=== PATIENT | male | born 1960 | race African-American/Black ===

== ENCOUNTER 2017-09-04 07:30 | Emergency (ER) | payer OTHER ==
[~2017-09-04] VITALS: Ht 190.5 cm; Wt 99.8 kg
--- NOTE | 2017-09-04 07:52 | PHYS DOC ---
Past Medical History Past Medical History: High Cholesterol, Hypertension Past Surgical History: Appendectomy, Other Additional Past Surgical Histo: "I THINK APPENDIX WAS REMOVED" Additional Information: 10-12 CIGARETTES A DAY Alcohol Use: Occasionally Additional Information: WEEKLY Drug Use: None Adult General Chief Complaint Chief Complaint: HYPERTENSION HPI HPI Patient is a 57 year old -[place]ian male with history of hypertension who presents today complaining of high blood pressure. Patient states he was at work today and his blood pressure was taken which was in the low 200s/100s. Patient denies any symptoms. He states he takes hydrochlorothiazide which she took a soon as he was told his blood pressure was high. Patient denies any other symptoms. Review of Systems Review of Systems Constitutional: Denies fever or chills [] Eyes: Denies change in visual acuity, redness, or eye pain [] HENT: Denies nasal congestion or sore throat [] Respiratory: Denies cough or shortness of breath [] Cardiovascular: High blood pressure GI: Denies abdominal pain, nausea, vomiting, bloody stools or diarrhea [] : Denies dysuria or hematuria [] Musculoskeletal: Denies back pain or joint pain [] Integument: Denies rash or skin lesions [] Neurologic: Denies headache, focal weakness or sensory changes [] All other systems were reviewed and found to be within normal limits, except as documented in this note. Current Medications Current Medications Current Medications Medications (Trade) Dose Ordered Sig/Al Start Time Stop Time Status Last Admin Dose Admin Azithromycin (Zithromax) 1,000 mg 1X ONCE 09/04/17 08:15 09/04/17 08:18 DC 09/04/17 08:48 1,000 MG Ceftriaxone Sodium 50 ml @ 100 mls/hr 1X ONCE 09/04/17 08:15 09/04/17 08:44 DC 09/04/17 08:50 100 MLS/HR Clonidine HCl (Catapres) 0.2 mg 1X ONCE 09/04/17 08:00 09/04/17 08:01 DC 09/04/17 07:57 0.2 MG Metronidazole (Flagyl) 2,000 mg 1X ONCE 09/04/17 08:15 09/04/17 08:18 DC 09/04/17 08:49 2,000 MG Allergies Allergies Allergies Coded Allergies Type Severity Reaction Last Updated Verified Penicillins Allergy Severe "SOMETHING HAPPENS" 09/04/17 Yes Physical Exam Physical Exam Constitutional: Well developed, well nourished, no acute distress, non-toxic appearance. [] HENT: Normocephalic, atraumatic, bilateral external ears normal, oropharynx moist, no oral exudates, nose normal. [] Eyes: PERRLA, EOMI, conjunctiva normal, no discharge. [] Neck: Normal range of motion, no tenderness, supple, no stridor. [] Cardiovascular:Heart rate regular rhythm, no murmur [] Lungs & Thorax: Bilateral breath sounds clear to auscultation [] Abdomen: Bowel sounds normal, soft, no tenderness, no masses, no pulsatile masses. [] Skin: Warm, dry, no erythema, no rash. [] Back: No tenderness, no CVA tenderness. [] Extremities: No tenderness, no cyanosis, no clubbing, ROM intact, no edema. [] Neurologic: Alert and oriented X 3, normal motor function, normal sensory function, no focal deficits noted. Cranial nerves II through XII intact Psychologic: Affect normal, judgement normal, mood normal. [] Current Patient Data Vital Signs Vital Signs Date Time Temp Pulse Resp B/P (MAP) Pulse Ox O2 Delivery O2 Flow Rate FiO2 09/04/17 09:08 54 11 100 09/04/17 07:57 241/114 09/04/17 07:30 98.7 Room Air 98.7 Lab Values Laboratory Tests Test 09/04/17 07:45 09/04/17 07:51 White Blood Count 6.9 x10^3/uL (4.0-11.0) Red Blood Count 5.19 x10^6/uL (4.30-5.70) Hemoglobin 14.8 g/dL (13.0-17.5) Hematocrit 44.2 % (39.0-53.0) Mean Corpuscular Volume 85 fL (79-100) Mean Corpuscular Hemoglobin 28 pg (25-35) Mean Corpuscular Hemoglobin Concent 33 g/dL (31-37) Red Cell Distribution Width 13.6 % (11.5-14.5) Platelet Count 187 x10^3/uL (140-400) Neutrophils (%) (Auto) 60 % (31-73) Lymphocytes (%) (Auto) 28 % (24-48) Monocytes (%) (Auto) 10 % (0-9) H Eosinophils (%) (Auto) 1 % (0-3) Basophils (%) (Auto) 1 % (0-3) Neutrophils # (Auto) 4.2 x10^3uL (1.8-7.7) Lymphocytes # (Auto) 1.9 x10^3/uL (1.0-4.8) Monocytes # (Auto) 0.7 x10^3/uL (0.0-1.1) Eosinophils # (Auto) 0.1 x10^3/uL (0.0-0.7) Basophils # (Auto) 0.1 x10^3/uL (0.0-0.2) Sodium Level 140 mmol/L (136-145) Potassium Level 3.9 mmol/L (3.5-5.1) Chloride Level 105 mmol/L (98-107) Carbon Dioxide Level 25 mmol/L (21-32) Anion Gap 10 (6-14) Blood Urea Nitrogen 26 mg/dL (8-26) Creatinine 1.2 mg/dL (0.7-1.3) Estimated GFR (Cockcroft-Gault) 76.1 Glucose Level 150 mg/dL (70-99) H Calcium Level 8.2 mg/dL (8.5-10.1) L Creatine Kinase 252 U/L (39-308) Creatine Kinase MB (Mass) 2.7 ng/mL (0.0-3.6) Creatine Kinase MB Relative Index 1.1 % (0-4) Troponin I Quantitative 0.029 ng/mL (0.000-0.055) PR-Bry-A-Type Natriuretic Peptide 260 pg/mL (0-124) H Urine Collection Type Unknown Urine Color Yellow Urine Clarity Clear Urine pH 6.0 Urine Specific [place] 1.020 Urine Protein Negative mg/dL (NEG-TRACE) Urine Glucose (UA) Negative mg/dL (NEG) Urine Ketones (Stick) Negative mg/dL (NEG) Urine Blood Negative (NEG) Urine Nitrite Negative (NEG) Urine Bilirubin Negative (NEG) Urine Urobilinogen Dipstick 0.2 mg/dL (0.2 mg/dL) Urine Leukocyte Esterase Small (NEG) Urine RBC Occ /HPF (0-2) Urine WBC 5-10 /HPF (0-4) Urine Squamous Epithelial Cells Few /LPF Urine Bacteria Few /HPF (0-FEW) Urine Mucus Slight /LPF Urine Trichomonas Present Laboratory Tests 09/04/17 07:45 Laboratory Tests 09/04/17 07:45 EKG EKG 07:[address] Webster sinus rhythm, HR 63, QRS Interval 80, no STEMI Radiology/Procedures Radiology/Procedures [] Course & Med Decision Making Course & Med Decision Making Pertinent Labs and Imaging studies reviewed. (See chart for details) This is a 57-year-old male with history of hypertension presented to the ED today complaining of high blood pressure. He takes hydrochlorothiazide which she took this morning. BP in the ED was 241/114. Patient is asymptomatic with this blood pressure. Patient's labs are negative except for BNP 160. Patient's blood pressure has came down to 183/104. He is requesting to be discharged. He was discharged with Amlodipine to take with his daily HCTZ. Patient is also concerned about STDs and would like to be tested and treated. Given Rocephin Flagyl and azithromycin in the ED. Educated on safe sex practices and the need to use protection. Patient is positive for Trichomonas. Patient provided STD education as well as follow-up information. I highly emphasize the importance of following up with the primary care doctor. Dragon Disclaimer Dragon Disclaimer This electronic medical record was generated, in whole or in part, using a voice recognition dictation system. Departure Departure Impression: Primary Impression: Accelerated hypertension Additional Impression: Trichomonas infection Disposition: HOME, SELF-CARE Condition: STABLE Referrals: NO PCP (PCP) Patient Instructions: Hypertension, Trichomoniasis Additional Instructions: You were seen for high blood pressure in the emergency room. We put you on amlodipine. Please continue taking hydrochlorothiazide. Please follow up with your primary care doctor on Tuesday. Return to the emergency room at any point you have concerning symptoms. You tested positive for trichomonas, this is a sexually transmitted disease, please do not have sex for seven days. Contact your partners let them you tested positive for trichomonas and ask them to seek treatment. Use protection at all times. Scripts Amlodipine Besylate (AMLODIPINE BESYLATE) 10 Mg Tablet 10 MG PO DAILY, #14 TAB Prov: ASHWIN CLAYTON APRN 09/04/17 Problem Qualifiers ASHWIN CLAYTON APRN Sep 04, 2017 07:52
[2017-09-04 07:57] LABS: BASO # 0.1 x10^3/uL (0.0-0.2); BASO % 1 % (0-3); EOS % 1 % (0-3); HEMATOCRIT 44.2 % (39.0-53.0); HEMOGLOBIN 14.8 g/dL (13.0-17.5); LYMPH # 1.9 x10^3/uL (1.0-4.8); LYMPH % 28 % (24-48); MEAN CORPUSCULAR HEMOGLOBIN 28 pg (25-35); MEAN CORPUSCULAR HGB CONC 33 g/dL (31-37); MEAN CORPUSCULAR VOLUME 85 fL (79-100); MONO % 10 % (0-9); NEUT % 60 % (31-73); PLATELET COUNT 187 x10^3/uL (140-400); RED BLOOD COUNT 5.19 x10^6/uL (4.30-5.70); RED CELL DISTRIBUTION WIDTH 13.6 % (11.5-14.5); WHITE BLOOD COUNT 6.9 x10^3/uL (4.0-11.0)
[2017-09-04] MEDS ORDERED: cloNIDine HCL 0.1 MG TABLET PO ONE (08:00)
[2017-09-04 08:08] LABS: CALCIUM 8.2 mg/dL (8.5-10.1); CREATININE 1.2 mg/dL (0.7-1.3); GFR 76.1; POTASSIUM 3.9 mmol/L (3.5-5.1)
[2017-09-04 08:11] LABS: BILIRUBIN,URINE NEGATIVE (NEG); GLUCOSE,URINE NEGATIVE (NEG); NITRITE,URINE NEGATIVE (NEG); PROTEIN,URINE NEGATIVE (NEG-TRACE); UROBILINOGEN,URINE 0.2 mg/dL (0.2 mg/dL)
[2017-09-04] MEDS ORDERED: AZITHROMYCIN 250 MG TABLET. PO ONE (08:15)
[2017-09-04] MEDS ORDERED: metroNIDAZOLE 500 MG TABLET PO ONE (08:15)
[2017-09-04 08:18] LABS: BACTERIA,URINE FEW /HPF (0-FEW); SQUAMOUS EPITHELIAL CELL,UR FEW /LPF
[2017-09-04 08:19] LABS: RBC,URINE OCC /HPF (0-2); TRICHOMONAS,URINE PRESENT
[2017-09-04 08:24] LABS: CKMB MASS 2.7 ng/mL (0.0-3.6)
[2017-09-04 09:08] VITALS: BP 142/109
--- NOTE | 2017-09-04 09:30 | RAD ---
Single view chest 09/04/2017 Clinical indication: Elevated blood pressure. Comparison: 06/27/2013 [place]: Cardiac and mediastinal silhouettes are unremarkable. No pleural effusion, pneumothorax or focal consolidation. Impression: No acute cardiopulmonary abnormality.
[2017-09-04] MEDS ORDERED: AMLO10TA2 PO (09:40)
--- NOTE | 2017-09-04 13:16 | EKG ---
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
== END 2017-09-04 09:45 | disposition home or self-care (01) ==
LOC: ER 07:30
DX: I10 Essential (primary) hypertension (principal); A59.9 Trichomoniasis, unspecified; E78.00 Pure hypercholesterolemia, unspecified; F17.210 Nicotine dependence, cigarettes, uncomplicated; Z88.0 Allergy status to penicillin
CPT/HCPCS: 36415; 71010; 80048; 81001; 82553; 83880; 84484; 85025; 87491; 87591; 93005; 96365; 99285; J0690; Q0144

== ENCOUNTER 2018-01-17 09:28 | Emergency (ER) | payer SELFPAY, OTHER ==
[2018-01-17] MEDS: cloNIDine HCL 0.1 MG TABLET PO (09:52)
== END 2018-01-17 10:13 | disposition home or self-care (01) ==
LOC: ER 09:28
DX: I10 Essential (primary) hypertension (principal); E78.00 Pure hypercholesterolemia, unspecified; Z90.49 Acquired absence of other specified parts of digestive tract; Z79.899 Other long term (current) drug therapy; Z88.0 Allergy status to penicillin
CPT/HCPCS: 99282

== ENCOUNTER 2021-03-29 09:10 | Emergency (ER) | payer MEDICAID ==
[~2021-03-29] VITALS: Ht 190.5 cm; Wt 108.2 kg
[~2021-03-29 09:10] MED LIST: AMLO-187 PO
[2021-03-29 09:40] LABS: BASO # 0.1 x10^3/uL (0.0-0.2); BASO % 1 % (0-3); EOS # 0.2 x10^3/uL (0.0-0.7); EOS % 2 % (0-3); HEMATOCRIT 41.3 % (39.0-53.0); HEMOGLOBIN 13.9 g/dL (13.0-17.5); LYMPH # 1.8 x10^3/uL (1.0-4.8); LYMPH % 27 % (24-48); MEAN CORPUSCULAR HEMOGLOBIN 28 pg (25-35); MEAN CORPUSCULAR HGB CONC 34 g/dL (31-37); MEAN CORPUSCULAR VOLUME 84 fL (79-100); MONO # 0.7 x10^3/uL (0.0-1.1); MONO % 11 % (0-9); NEUT # 3.9 x10^3/uL (1.8-7.7); NEUT % 59 % (31-73); PLATELET COUNT 130 x10^3/uL (140-400); RED BLOOD COUNT 4.91 x10^6/uL (4.30-5.70); RED CELL DISTRIBUTION WIDTH 13.5 % (11.5-14.5); WHITE BLOOD COUNT 6.6 x10^3/uL (4.0-11.0)
[2021-03-29 09:52] LABS: CALCIUM 8.8 mg/dL (8.5-10.1); CREATININE 1.3 mg/dL (0.7-1.3); GFR 68.6; POTASSIUM 4.5 mmol/L (3.5-5.1)
[2021-03-29 09:56] LABS: ALBUMIN 3.9 g/dL (3.4-5.0); ALBUMIN/GLOBULIN RATIO 1.1 (1.0-1.7); MAGNESIUM 2.1 mg/dL (1.8-2.4); TOTAL BILIRUBIN 0.5 mg/dL (0.2-1.0); TOTAL PROTEIN 7.5 g/dL (6.4-8.2)
--- NOTE | 2021-03-29 09:57 | RAD ---
Exam Date: 03/29/2021 9:[address] HEAD/BRAIN WO Indication: Reason: headache, hypertension / Spl. Instructions: / History: . TECHNIQUE: Head CT was performed without intravenous contrast. One or more of the following dose re duction techniques were utilized: *Automated exposure control (AEC) *Adjustment of mA and/or kV according to patient size *Use of iterative reconstruction technique *CT scan done according to ALARA, or ALARA/IMAGE GENTLY FINDINGS: The ventricles and sulci are normal for the patient's stated age. There is no evidence of acute int racranial hemorrhage, extra-axial collection, mass effect, midline shift, or acute territorial infarc t. No lesion of the skull base or the calvarium is seen. The visualized paranasal sinuses, mastoid ai r cells and orbits are normal in appearance. IMPRESSION: No evidence for acute intracranial abnormality. Electronically signed by: Barak Lucas MD (03/29/2021 9:55 AM) [facility]
--- NOTE | 2021-03-29 10:06 | RAD ---
Exam Date: 03/29/2021 9:39 AM XR CHEST 1V Indication: Reason: chest pain / Spl. Instructions: / History: . Comparison: September 04, 2017 FINDINGS/ IMPRESSION: The cardiac silhouette and pulmonary vasculature are within normal limits. There is no focal consolidation, pleural effusion or pneumothorax. The visualized osseous structures are intact. Electronically signed by: Barak Lucas MD (03/29/2021 10:03 AM) [facility]
[2021-03-29] MEDS ORDERED: ACETAMINOPHEN 500 MG TABLET PO ONE (10:45)
[2021-03-29 12:14] LABS: BILIRUBIN,URINE NEGATIVE (NEG); CLARITY,URINE CLEAR; COLOR,URINE YELLOW; NITRITE,URINE NEGATIVE (NEG); PH,URINE 6.5 (<5.0-8.0); PROTEIN,URINE NEGATIVE (NEG-TRACE); UROBILINOGEN,URINE 0.2 mg/dL (0.2 mg/dL)
[2021-03-29 12:25] LABS: BACTERIA,URINE 0 /HPF (0-FEW); RBC,URINE 0 /HPF (0-2); WBC,URINE 0 /HPF (0-4)
--- NOTE | 2021-03-29 13:57 | PHYS DOC ---
Past Medical History Past Medical History: CAD, High Cholesterol, Hypertension Past Surgical History: Appendectomy, Other Additional Past Surgical Histo: "I THINK APPENDIX WAS REMOVED", CARDIAC STENT Smoking Status: Current Every Day Smoker Alcohol Use: None Drug Use: None General Adult EDM: Chief Complaint: HYPERTENSION HPI: HPI: Patient is a 60 year old male who presented to ER because he not feeling well. Patient said symptoms started last night, he was having headache, fever and weak and dizzy. This morning he woke up he had the same symptom. Patient denies any chest pain or any trouble breathing, denies abdominal pain, no nausea vomiting. Patient has a history of hypertension, he is on Coreg 25 mg twice a day, amlodipine 10 mg daily. Patient said they have trouble regulating his blood pressure. Patient also has a history of coronary artery disease, high cholesterol. Patient is on high cholesterol medication and Plavix. Patient denies any cough or feve,r he denies chest pain Review of Systems: Review of Systems: Constitutional: Denies fever or chills. [] Eyes: Denies change in visual acuity. [] HENT: Denies nasal congestion or sore throat. [] Respiratory: Denies cough or shortness of breath. [] Cardiovascular: Denies chest pain or edema. [] GI: Denies abdominal pain, nausea, vomiting, bloody stools or diarrhea. [] : Denies dysuria. [] Musculoskeletal: Denies back pain or joint pain. [] Integument: Denies rash. [] Neurologic: Positive for headache and dizziness, no focal weakness or sensory changes. [] Endocrine: Denies polyuria or polydipsia. [] Lymphatic: Denies swollen glands. [] Psychiatric: Denies depression or anxiety. [] Heart Score: C/O Chest Pain: N/A Risk Factors: Risk Factors: DM, Current or recent (<one month) smoker, HTN, HLP, family history of CAD, obesity. Risk Scores: Score 0 - 3: 2.5% MACE over next 6 weeks - Discharge Home Score 4 - 6: 20.3% MACE over next 6 weeks - Admit for Clinical Observation Score 7 - 10: 72.7% MACE over next 6 weeks - Early Invasive Strategies Current Medications: Current Medications Medications (Trade) Dose Ordered Sig/Al Start Time Stop Time Status Last Admin Dose Admin Acetaminophen (Tylenol) 1,000 mg 1X ONCE 03/29/21 10:45 03/29/21 10:46 DC 03/29/21 10:49 1,000 MG Allergies: Allergies: Allergies Coded Allergies Type Severity Reaction Last Updated Verified Penicillins Allergy Severe "SOMETHING HAPPENS" 09/04/17 Yes Physical Exam: PE: Constitutional: Well developed, well nourished, no acute distress, non-toxic appearance. [] HENT: Normocephalic, atraumatic, bilateral external ears normal, oropharynx moist, no oral exudates, nose normal. [] Eyes: PERRLA, EOMI, conjunctiva normal, no discharge. [] Neck: Normal range of motion, no tenderness, supple, no stridor. [] Cardiovascular: Sinus bradycardia, regular rhythm, no murmur [] Lungs & Thorax: Bilateral breath sounds clear to auscultation [] Abdomen: Bowel sounds normal, soft, no tenderness, no masses, no pulsatile masses. [] Skin: Warm, dry, no erythema, no rash. [] Back: No tenderness, no CVA tenderness. [] Extremities: No tenderness, no cyanosis, no clubbing, ROM intact, no edema. [] Neurologic: Alert and oriented X 3, normal motor function, normal sensory function, no focal deficits noted. [] Psychologic: Affect normal, judgement normal, mood normal. [] Current Patient Data: Labs: Laboratory Tests Test 03/29/21 09:30 03/29/21 11:50 03/29/21 12:10 White Blood Count 6.6 x10^3/uL (4.0-11.0) Red Blood Count 4.91 x10^6/uL (4.30-5.70) Hemoglobin 13.9 g/dL (13.0-17.5) Hematocrit 41.3 % (39.0-53.0) Mean Corpuscular Volume 84 fL (79-100) Mean Corpuscular Hemoglobin 28 pg (25-35) Mean Corpuscular Hemoglobin Concent 34 g/dL (31-37) Red Cell Distribution Width 13.5 % (11.5-14.5) Platelet Count 130 x10^3/uL (140-400) L Neutrophils (%) (Auto) 59 % (31-73) Lymphocytes (%) (Auto) 27 % (24-48) Monocytes (%) (Auto) 11 % (0-9) H Eosinophils (%) (Auto) 2 % (0-3) Basophils (%) (Auto) 1 % (0-3) Neutrophils # (Auto) 3.9 x10^3/uL (1.8-7.7) Lymphocytes # (Auto) 1.8 x10^3/uL (1.0-4.8) Monocytes # (Auto) 0.7 x10^3/uL (0.0-1.1) Eosinophils # (Auto) 0.2 x10^3/uL (0.0-0.7) Basophils # (Auto) 0.1 x10^3/uL (0.0-0.2) Sodium Level 140 mmol/L (136-145) Potassium Level 4.5 mmol/L (3.5-5.1) Chloride Level 106 mmol/L (98-107) Carbon Dioxide Level 25 mmol/L (21-32) Anion Gap 9 (6-14) Blood Urea Nitrogen 19 mg/dL (8-26) Creatinine 1.3 mg/dL (0.7-1.3) Estimated GFR (Cockcroft-Gault) 68.6 BUN/Creatinine Ratio 15 (6-20) Glucose Level 147 mg/dL (70-99) H Calcium Level 8.8 mg/dL (8.5-10.1) Magnesium Level 2.1 mg/dL (1.8-2.4) Total Bilirubin 0.5 mg/dL (0.2-1.0) Aspartate Amino Transferase (AST) 25 U/L (15-37) Alanine Aminotransferase (ALT) 30 U/L (16-63) Alkaline Phosphatase 101 U/L (46-116) Troponin I Quantitative < 0.017 ng/mL (0.000-0.055) < 0.017 ng/mL (0.000-0.055) NE-Yhl-K-Type Natriuretic Peptide 126 pg/mL (0-124) H Total Protein 7.5 g/dL (6.4-8.2) Albumin 3.9 g/dL (3.4-5.0) Albumin/Globulin Ratio 1.1 (1.0-1.7) Lipase 120 U/L (73-393) Urine Collection Type Unknown Urine Color Yellow Urine Clarity Clear Urine pH 6.5 (<5.0-8.0) Urine Specific [place] 1.015 (1.000-1.030) Urine Protein Negative mg/dL (NEG-TRACE) Urine Glucose (UA) Negative mg/dL (NEG) Urine Ketones (Stick) Negative mg/dL (NEG) Urine Blood Negative (NEG) Urine Nitrite Negative (NEG) Urine Bilirubin Negative (NEG) Urine Urobilinogen Dipstick 0.2 mg/dL (0.2 mg/dL) Urine Leukocyte Esterase Negative (NEG) Urine RBC 0 /HPF (0-2) Urine WBC 0 /HPF (0-4) Urine Squamous Epithelial Cells Few /LPF Urine Bacteria 0 /HPF (0-FEW) Laboratory Tests 03/29/21 09:30 Laboratory Tests 03/29/21 09:30 Vital Signs: Vital Signs Date Time Temp Pulse Resp B/P (MAP) Pulse Ox O2 Delivery O2 Flow Rate FiO2 03/29/21 11:30 50 189/88 (121) 98 Room Air 03/29/21 09:12 98.2 18 98.2 EKG: EKG: EKG done at 917, heart rate 55 bpm, sinus rhythm, no ST segment elevation Radiology/Procedures: Radiology/Procedures: [][facility] [address] [place] [address] IMAGING REPORT Signed PATIENT: JOCELYNN ESPINOZA ACCOUNT: [id number] : 1960 LOCATION: ER AGE: 60 SEX: M EXAM STATUS: PRE ER ORD. PHYSICIAN: KAELA DE LA VEGA DO REASON: chest pain PROCEDURE: PORTABLE CHEST 1V Exam Date: 03/29/2021 9:39 AM XR CHEST 1V Indication: Reason: chest pain / Spl. Instructions: / History: . Comparison: September 04, 2017 FINDINGS/ IMPRESSION: The cardiac silhouette and pulmonary vasculature are within normal limits. There is no focal consolidation, pleural effusion or pneumothorax. The visualized osseous structures are intact. Electronically signed by: Shy Lucas MD (03/29/2021 10:03 AM) [facility] DICTATED and SIGNED BY: SHY LUCAS MD DATE: 03/29/21 [id number] [facility] [address] [place] [address] IMAGING REPORT Signed PATIENT: JOCELYNN ESPINOZA ACCOUNT: [id number] : 1960 LOCATION: ER AGE: 60 SEX: M EXAM STATUS: PRE ER ORD. PHYSICIAN: KAELA DE LA VEGA DO REASON: chest pain PROCEDURE: PORTABLE CHEST 1V Exam Date: 03/29/2021 9:39 AM XR CHEST 1V Indication: Reason: chest pain / Spl. Instructions: / History: . Comparison: September 04, 2017 FINDINGS/ IMPRESSION: The cardiac silhouette and pulmonary vasculature are within normal limits. There is no focal consolidation, pleural effusion or pneumothorax. The visualized osseous structures are intact. Electronically signed by: Shy Lucas MD (03/29/2021 10:03 AM) [facility] DICTATED and SIGNED BY: SHY LUCAS MD DATE: 03/29/21 [id number] Course & Med Decision Making: Course & Med Decision Making Pertinent Labs and Imaging studies reviewed. (See chart for details) Patient is a 60-year-old male who present to ER due to generalized weakness, dizziness and high blood pressure. CT scan head did not show any acute problem. Patient pulmonary has been running between 47 bpm to 50 beats per minutes sinus bradycardia. His blood pressure initially was elevated but improved to 145/75. No treatment was done for the high blood pressure, it improved by itself. Patient was given 1 g Tylenol and he felt much better for the headache. Patient would like to go home. Patient is on Coreg 25 mg twice a day, amlodipine 10 mg daily. His heart rate slowed due to the Coreg. Discussed with the certified alcohol counselor on-call Dr. Boyer who recommended patient to keep taking the amlodipine, however reduce the Coreg to 12.5 mg twice a day, put patient on hydralazine 50 g twice a day only if his blood pressure above 140/80. Patient said he called his doctor already he will follow up with his doctor tomorrow. Patient denies any chest pain, no trouble breathing. Delta troponin was normal Patient was discharged home with his . Robin Disclaimer: Robin Disclaimer: This electronic medical record was generated, in whole or in part, using a voice recognition dictation system. Departure Departure Impression: Primary Impression: Hypertension Additional Impression: Bradycardia Disposition: HOME / SELF CARE / HOMELESS Condition: IMPROVED Referrals: NON,STAFF (PCP) Follow up with your doctor on Tuesday for reevaluation. Patient Instructions: Bradycardia, Hypertension Additional Instructions: TODAY, YOU WILL NEED TO CUT YOUR COREG DOSE IN HALF: TAKE 12.5 MG COREG TWO TIMES PER DAY. CONTINUE TO TAKE AMLODIPINE 10 MG DAILY PRESCRIBED. TAKE 50 MG HYDRALAZINE TWO TIMES PER DAY ONLY IF YOUR BLOOD PRESSURE ABOVE 140/ 80. RETURN [facility] IF YOU HAVE CHEST PAIN OR WORSEN SYMPTOMS. FOLLOW UP WITH YOUR DOCTOR TOMORROW. Scripts Hydralazine Hcl (HYDRALAZINE HCL) 50 Mg Tablet 1 TAB PO BID PRN for BLOOD PRESSURE ABOVE 140/80, #30 TAB 3 Refills Prov: KAELA DE LA VEGA DO 03/29/21 KAELA DE LA VEGA DO Mar 29, 2021 13:57
[2021-03-29 14:00] VITALS: BP 159/94
[2021-03-29] MEDS ORDERED: HYDR-2869 PO (14:04)
--- NOTE | 2021-03-29 15:36 | EKG ---
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
== END 2021-03-29 14:20 | disposition home or self-care (01) ==
LOC: ER 09:10
DX: I10 Essential (primary) hypertension (principal); R00.1 Bradycardia, unspecified; E78.00 Pure hypercholesterolemia, unspecified; I25.10 Atherosclerotic heart disease of native coronary artery without angina pectoris; F17.200 Nicotine dependence, unspecified, uncomplicated; Z95.5 Presence of coronary angioplasty implant and graft; Z88.0 Allergy status to penicillin
CPT/HCPCS: 36415; 70450; 71045; 80053; 81001; 83690; 83735; 83880; 84484; 85025; 93005; 99285-25

== ENCOUNTER → 2021-06-29 | Outpatient (CLI) | payer OTHER, MEDICAID ==
[~2021-06-29] MED LIST changes: +HYDR-2869 PO
--- NOTE | 2021-06-30 18:17 | SLEEP ---
DATE OF STUDY: 06/29/2021 POLYSOMNOGRAM REPORT OBJECTIVE: The patient is a 61-year-old male here for a BiPAP titration regarding sleep apnea. He had a previous sleep study at [facility] on 02/26/2021 demonstrating obstructive sleep apnea requiring CPAP. Suboptimal pressure was obtained and a followup study was recommended. The apnea-hypopnea index on that study was 63.7 events per hour of sleep. Height 6 feet 3 inches, weight 237 pounds, body mass index 30. Hollis sleep score 7. INTERPRETATION: Sleep architecture is characterized by sleep efficiency of 83% across the 8.9 hours of recording time. Later in the study, the patient has excellent REM rebound and achieves a normal stage volume for age. Sleep onset latency is 9 minutes. Respiratory monitoring shows apnea-hypopnea index of 6.3 events per hour across the entire study. The patient was started on BiPAP at 18/14 titrated up to 20/16. On the setting of 20/16, apnea-hypopnea index falls to 5.9 events per hour of sleep. The minimum oxygen saturation is 94%. Periodic limb movements of sleep occur at the rate of 2 per hour of sleep. No cardiac arrhythmias observed. IMPRESSION: Abnormal polysomnogram showing obstructive sleep apnea and hypopnea. This is a BiPAP titration study with successful treatment at 20/16 using a Respironics DreamWear full face mask, large size. RECOMMENDATIONS: 1. The patient should be established on the setting. 2. He should avoid sedatives and alcohol and pursue weight loss. Thank you letting us to help with the patient's care. BELLA DR: Pastor TID: [id number] CC: NAE CABAN MD, DONALD SPRAGUE MD
== END ==
LOC: RT 18:36
PROVIDERS: ATTEND Internal Medicine Pulmonary Disease
DX: G47.33 Obstructive sleep apnea (adult) (pediatric) (principal)
CPT/HCPCS: 95811

== ENCOUNTER → 2021-07-27 | Outpatient (CLI) | payer MEDICARE, OTHER ==
[~2021-07-27] MED LIST changes: +REGADENOSON 0.4 MG/5 ML DISP.SYRIN. IV ONE
--- NOTE | 2021-07-27 13:10 | RAD ---
MR#: [id number] Date of Study: 07/27/2021 Ordering Physician: RALPH SANCHEZ, Referring Physician: CODIE GUEVARA Tech: MIKE Rdz, ARRT (R) (N) APPROVED REPORT Test Type: Pharmacological Stress Nurse/Tech: Brian Oconnell RN Test Indications: CAD Cardiac History: Stent 2018, HTN, Smoker, DM Medications: See Electronic Medical Record Medical History: See Electronic Medical Record Resting ECG: SR PAC Resting Heart Rate: 60 bpm Resting Blood Pressure: 138/74mmHg Pretest Chest Pain: None Nurse/Tech Notes lungs CTA, S1S2. Pt unable to do treadmill MPI due to bilateral knee pain Consent: The procedure was explained to the patient in lay terms. Informed consent was witnessed. Cody eout was entered into [employer]. History and Stress Test performed by RT Mena GarzaR) (N) Pharm. Details Pharmacologic stress testing was performed using 0.4mg per 5ml of regadenoson given intravenously ove r 7-10 seconds. Stress Symptoms No chest pain or symptoms. POST EXERCISE Reason for Termination: Infusion complete Max HR: 78 bpm Max Blood Pressure: 150/66mmHg Blood Pressure response to exercise: Normal blood pressure response during stress. Heart Rate response to exercise: normal response Chest Pain: No. Arrhythmia: No. ST Change: No. INTERPRETATION Stress EKG Conclusion: The resting EKG shows a sinus rhythm with nonspecific ST segment changes. The stress EKG shows no significant changes from baseline. Mildly abnormal baseline EKG but no EKG evidence of stress-induced ischemia. Imaging Protocol IMAGE PROTOCOL: Rest Tc-99m/stress Tc-99m 1 day Rest: Stress: Viability: Radiopharm.Tc99m WszxgmriyMr98l Sestamibi Dose9.7mCi 33mCi Img Date 07/27/2021 07/27/2021 Inj-Img Rbrl76rsa. 60min. Rest Admin Site:IV - Right HandAdministrator:JOSEFA Mccurdy Stress Admin Site: IV - Right HandAdministrator: RT Mena GarzaR)(N) STRESS DATA End Diast. Vol.157.0mlLVEDV index BSA68.0ml End Syst. Vol.72.0mlLVESV index BSA31.0ml Myocardial Sdjn763.0gEject. Szkfbvdc03.0% Stress Scores Regional WT2.00Summed WT18.00 Regional WM1.00Summed WM6.00 LV Perfusion The stress scans show slight inferior wall thinning. The rest scans show slight inferior wall thinning. Nuclear imaging shows no reversible ischemia. Nuclear imaging shows slight inferior wall thinning which is most consistent with an attenuation defe ct. Wall Motion Left ventricular systolic function has an ejection fraction of 53% and no significant regional wall m otion abnormalities. LV Perf. Quant 17 Seg. SSS1.00 17 Seg. SRS0.00 17 Seg. SDS1.00 Stress Defect Extent (% LAD)1.30Rest Defect Extent (% LAD)0.60Rev. Defect Extent (% LAD)0.00 Stress Defect Extent (% LCX) 0.00Rest Defect Extent (% LCX)0.00Rev. Defect Extent (% LCX)0.00 Stress Defect Extent (% RCA)0.00Rest Defect Extent (% RCA)0.00Rev. Defect Extent (% RCA)0.00 Stress Defect Extent (% HERLINDA)1.10Rest Defect Extent (% HERLINDA)0.70Rev. Defect Extent (% HERLINDA)0.00 Conclusion 1. Abnormal baseline EKG but no EKG evidence of stress-induced ischemia. 2. Nuclear imaging shows no reversible ischemia. 3. Nuclear imaging shows slight fixed inferior wall thinning most consistent with an attenuation defe ct. 4. Left ventricular ejection fraction of 53% with no significant regional wall motion abnormalities. 5. Moderately low risk Lexiscan nuclear stress test. Signed by : Julio Fu MD Electronically Approved : 07/27/2021 13:09:42
== END ==
LOC: NM 09:28
PROVIDERS: ATTEND Internal Medicine Cardiovascular Disease
DX: R94.31 Abnormal electrocardiogram [ECG] [EKG] (principal); I25.10 Atherosclerotic heart disease of native coronary artery without angina pectoris
CPT/HCPCS: 78452; 93017; A9500; J2785